=== PATIENT | male | born 1940 | race Caucasian/White ===

== ENCOUNTER → 2017-11-16 | Outpatient (CLI) | payer MEDICARE ==
[~2017-11-16] MED LIST: C,E,1CAP PO; CALC-126 PO; IRON SULFATE PO; LACT10SO28 PO; LEVO125T5 PO; LISI1TAB3 PO; MECO5000 PO; MILK THISTLE PO; MINO50TA2 PO; MULT-751 PO; OMEP-110 PO; SPIR25TA5 PO; VENL75CA6 PO; [UNRECOGNIZED DRUG - OTHER] PO
[2017-11-16 14:16] LABS: ALBUMIN 3.6 g/dL (3.4-5.0); ANION GAP 9 mmol/L (5-15); CALCIUM 9.6 mg/dL (8.5-10.1); CHLORIDE 107 mmol/L (98-107)
[2017-11-16 14:22] LABS: ALANINE AMINOTRANSFERASE 53 U/L (12-78); ALKALINE PHOSPHATASE 121 U/L (45-117); CREATININE 0.97 mg/dL (0.7-1.3); TOTAL PROTEIN 8.3 g/dL (6.4-8.2)
== END | disposition home or self-care (01) ==
LOC: STAR 12:53
PROVIDERS: ATTEND Internal Medicine
DX: Z01.818 Encounter for other preprocedural examination (principal); I83.90 Asymptomatic varicose veins of unspecified lower extremity
CPT/HCPCS: 36415; 80053; 93005

== ENCOUNTER 2017-11-22 10:16 | Day surgery (SDC) | payer MEDICARE ==
[2017-11-16 13:23] VITALS: BP 110/66
[~2017-11-22] VITALS: Ht 190.5 cm; Wt 127.3 kg
[2017-11-22] MEDS ORDERED: LACTATED RINGERS 1,000 ML IV SCH (11:14)
[2017-11-22] MEDS ORDERED: PROPOFOL 10 MG/ML, 50ML ONE (12:05)
== END 2017-11-22 13:55 | disposition home or self-care (01) ==
LOC: OUT 10:16
PROVIDERS: ATTEND Internal Medicine
DX: I85.00 Esophageal varices without bleeding (principal); K76.6 Portal hypertension; K31.89 Other diseases of stomach and duodenum; D64.9 Anemia, unspecified; F41.9 Anxiety disorder, unspecified; E66.9 Obesity, unspecified; Z87.891 Personal history of nicotine dependence
CPT/HCPCS: 43244; J2704

== ENCOUNTER 2018-02-21 11:41 | Day surgery (SDC) | payer MEDICARE ==
[~2018-02-21] VITALS: Ht 190.5 cm; Wt 134.5 kg
[2018-02-21] MEDS ORDERED: MIDAZOLAM 1 MG/ML, 5ML ONE ×2 (12:30)
[2018-02-21] MEDS ORDERED: FENTANYL PF 100 MCG/2ML ONE (12:30)
[2018-02-21] MEDS ORDERED: prevagen PO (12:36)
[2018-02-21] MEDS ORDERED: LACTATED RINGERS 1,000 ML IV SCH (12:42)
[2018-02-21 12:45] VITALS: BP 134/73
[2018-02-21 13:15] LABS: ALANINE AMINOTRANSFERASE 51 U/L (12-78); ALBUMIN 3.4 g/dL (3.4-5.0); ANION GAP 7 mmol/L (5-15); CALCIUM 8.8 mg/dL (8.5-10.1); CHLORIDE 110 mmol/L (98-107); CREATININE 0.81 mg/dL (0.7-1.3)
[2018-02-21 13:18] LABS: ALKALINE PHOSPHATASE 103 U/L (45-117); BILIRUBIN,TOTAL 1.6 mg/dL (0.2-1.0); TOTAL PROTEIN 7.5 g/dL (6.4-8.2)
== END 2018-02-21 14:50 | disposition home or self-care (01) ==
LOC: OUT 11:41
PROVIDERS: ATTEND Internal Medicine
DX: I85.00 Esophageal varices without bleeding (principal); I10 Essential (primary) hypertension; K21.9 Gastro-esophageal reflux disease without esophagitis; E03.9 Hypothyroidism, unspecified
CPT/HCPCS: 36415; 43244; 80053; J2250; J3010; J7120

== ENCOUNTER 2018-05-17 08:19 | Day surgery (SDC) | payer MEDICARE ==
[~2018-05-17] VITALS: Ht 193 cm; Wt 130.0 kg
[~2018-05-17 08:19] MED LIST changes: +FERR324T5 PO; +LEVO100T PO; +PREVAGEN PO; +prevagen PO
[2018-05-17] MEDS ORDERED: LACTATED RINGERS 1,000 ML IV SCH (08:39)
[2018-05-17 08:55] VITALS: BP 134/74
[2018-05-17] MEDS ORDERED: FENTANYL PF 100 MCG/2ML IV PRN (09:00)
[2018-05-17] MEDS ORDERED: ONDANSETRON 2MG/ML, 2ML IV PRN (09:00)
[2018-05-17 09:30] LABS: ALANINE AMINOTRANSFERASE 54 U/L (12-78); ALBUMIN 3.6 g/dL (3.4-5.0); ANION GAP 6 mmol/L (5-15); CALCIUM 9.5 mg/dL (8.5-10.1); CHLORIDE 111 mmol/L (98-107); CREATININE 0.87 mg/dL (0.7-1.3)
[2018-05-17 09:32] LABS: ALKALINE PHOSPHATASE 81 U/L (45-117); BILIRUBIN,TOTAL 1.9 mg/dL (0.2-1.0); TOTAL PROTEIN 7.7 g/dL (6.4-8.2)
[2018-05-17] MEDS ORDERED: FENTANYL PF 100 MCG/2ML ONE (10:25)
== END 2018-05-17 12:00 | disposition home or self-care (01) ==
LOC: OUT 08:19
PROVIDERS: ATTEND Internal Medicine
DX: I85.00 Esophageal varices without bleeding (principal); K76.6 Portal hypertension; K31.89 Other diseases of stomach and duodenum; K64.1 Second degree hemorrhoids; E03.9 Hypothyroidism, unspecified; K21.9 Gastro-esophageal reflux disease without esophagitis; G47.33 Obstructive sleep apnea (adult) (pediatric); D64.9 Anemia, unspecified
CPT/HCPCS: 36415; 43235; 45378; 80053; 93005; J3010; J7120